=== PATIENT | female | born 1980 | race Caucasian/White ===

== ENCOUNTER 2017-04-29 09:07 | Emergency (ER) | payer BC, OTHER ==
[~2017-04-29] VITALS: Ht 165.1 cm; Wt 78.2 kg
[~2017-04-29 09:07] MED LIST: COLA100C PO; IBUP800T23 PO; ORTH0.35 PO; PERC5TAB12 PO; PRENTAB72 PO
[2017-04-29 09:13] VITALS: BP 120/75; PULSE 86; RESP 18; TEMP 98.9; O2SAT 99
[2017-04-29 09:24] LABS: BLOOD, URINE LARGE (NEG); GLUCOSE,URINE NEG (NEG); KETONE, URINE NEG (NEG); NITRITE,URINE NEG (NEG); PH, URINE 6.5 (5.0-8.5)
[2017-04-29 09:31] LABS: METHOD OF COLLECTION CLEAN CATCH; URINE COLOR YELLOW (YELLW/STRAW)
[2017-04-29 09:32] LABS: COMMENT (UR) CULTURE INDICATED; CULTURE IF INDICATED CULTURE INDICATED; RBC, URINE 15-19 /hpf (0-3); SQUAMOUS EPITHELIAL CELL URINE 0-5 /hpf (0-5)
[2017-04-29] MEDS ORDERED: BACT800T5 PO (09:48)
--- NOTE | 2017-04-29 09:48 | PD ---
HPI Chief Complaint: Abdominal Pain Time Seen by Provider: 09:45 Travel History International Travel<30 days: No Contact w/Intl Traveler<30days: No Traveled to known affect area: No History of Present Illness HPI 36-year-old female patient presents to the ER today for several days history of lower abdominal discomfort with some left lower back discomfort, burning on urination, urinary frequency. She states that she was not feeling well for several days. She has had some subjective fevers as well. She denies any vomiting, coughing, chest pains, or any other symptoms. Modifying Factors: None Associated Signs & Symptoms: Lower abdominal and left back discomfort, urinary symptoms Risk Factors: None PFSH Past Medical History : 1 Para: 1 Social History Alcohol Use: No Tobacco Use: No Allergies-Medications (Allergen,Severity, Reaction): Coded Allergies: No Known Allergies (Verified , 08/14/12) Reported Meds & Prescriptions Reported Meds & Active Scripts Active Reported Percocet (Oxycodone/Acetaminophen) 5 Mg/325 Mg Tab 1 Tab PO Q6H PRN Colace (Docusate Sodium) 100 Mg Cap 100 Mg PO BID Ibuprofen 800 Mg Tab 800 Mg PO TID Ortho Micronor (Norethindrone) Tab 1 Tab PO DAILY ( Vit W/ Ferrous Fumara) Tab 1 PO Review of Systems Except as stated in HPI: all other systems reviewed are Neg Physical Exam Narrative GENERAL: Well-developed young female patient currently in mild distress. Awake and oriented 3. SKIN: Focused skin assessment warm/dry. HEAD: Atraumatic. Normocephalic. EYES: Pupils equal and round. No scleral icterus. No injection or drainage. ENT: No nasal bleeding or discharge. Mucous membranes pink and moist. NECK: Trachea midline. No JVD. CARDIOVASCULAR: Regular rate and rhythm. No murmur appreciated. RESPIRATORY: No accessory muscle use. Clear to auscultation. Breath sounds equal bilaterally. GASTROINTESTINAL: Abdomen soft, mild suprapubic tenderness without guarding or rebound, nondistended. Hepatic and splenic margins not palpable. BACK: Mild left CVA tenderness. No rash. No point tenderness on palpation of the spine. MUSCULOSKELETAL: No obvious deformities. No clubbing. No cyanosis. No edema. NEUROLOGICAL: Awake and alert. No obvious cranial nerve deficits. Motor grossly within normal limits. Normal speech. PSYCHIATRIC: Appropriate mood and affect; insight and judgment normal. Data Data Last Documented VS Vital Signs Date Time Temp Pulse Resp B/P (MAP) Pulse Ox O2 Delivery O2 Flow Rate FiO2 04/29/17 09:13 98.9 86 18 120/75 (90) 99 Room Air Orders Orders Urinalysis - C+S If Indicated (04/29/17 09:09) Ed Urine Pregnancytest Poc (04/29/17 09:09) Urine Culture (04/29/17 09:15) Labs Laboratory Tests Test 04/29/17 09:15 Urine Collection Type CLEAN CATCH Urine Color YELLOW Urine Turbidity SLIGHT Urine pH 6.5 Urine Specific [place] 1.007 Urine Protein NEG mg/dL Urine Glucose (UA) NEG mg/dL Urine Ketones NEG mg/dL Urine Occult Blood LARGE Urine Nitrite NEG Urine Bilirubin NEG Urine Leukocyte Esterase LARGE Urine RBC 15-19 /hpf Urine WBC 50-99 /hpf Urine WBC Clumps MOD Urine Squamous Epithelial Cells 0-5 /hpf Microscopic Urinalysis Comment CULTURE INDICATED Urine Collection Time 09:15 [facility] Medical Decision Making Medical Screen Exam Complete: Yes Emergency Medical Condition: Yes Medical Record Reviewed: Yes Interpretation(s) Laboratory Tests Test 04/29/17 09:15 Urine Occult Blood LARGE (NEG) Urine Leukocyte Esterase LARGE (NEG) Urine RBC 15-19 /hpf (0-3) Urine WBC 50-99 /hpf (0-5) Urine WBC Clumps MOD (NONE) Differential Diagnosis UTI versus muscular skeletal versus renal colic Narrative Course UA significant for WBCs and blood, indicative of underlying UTI. Abdomen is otherwise benign and I do not suspect an acute intra-abdominal process. Vital signs are stable in the ER. At this point, my plan would be to treat her for her UTI and have her follow-up with primary care doctor. Return for any worsening in symptoms as needed. The plan has been discussed with her and she states understanding. Diagnosis Primary Impression: UTI (urinary tract infection) Med/Other Pt SpecificInfo: Prescription(s) given Scripts Sulfamethoxazole-Trimethoprim (Bactrim DS) 800-160 Mg Tab 1 TAB PO BID for Infection, #14 TAB 0 Refills Prov: Vanessa Ortega MD 04/29/17 Disposition: 01 DISCHARGE HOME Condition: Stable Vanessa Ortega MD Apr 29, 2017 09:48
== END 2017-04-29 10:05 | disposition home or self-care (01) ==
LOC: PHED 09:07
DX: N39.0 Urinary tract infection, site not specified (principal); B96.20 Unspecified Escherichia coli [E. coli] as the cause of diseases classified elsewhere; M54.5 Low back pain
CPT/HCPCS: 81001; 84703; 87077; 87086; 87186; 99283